=== PATIENT | female | born 1955 | race Caucasian/White ===

== ENCOUNTER → 2016-11-19 | Outpatient (CLI) | payer OTHER ==
[~2016-11-19] MED LIST: IOPAMIDOL (ISOVUE 370) 100 ML BTL IV ONE; LIDOCAINE 1% 300 MG/30 ML SDV ONE
== END ==
LOC: FIMAGING 12:36
PROVIDERS: ATTEND Podiatrist Primary Podiatric Medicine
PROC: 3E0U3KZ Introduction of Other Diagnostic Substance into Joints, Percutaneous Approach (ICD-10-PCS; principal; 2016-11-19)
DX: M79.671 Pain in right foot (principal); R93.6 Abnormal findings on diagnostic imaging of limbs
CPT/HCPCS: Q9967

== ENCOUNTER 2016-12-23 06:28 | Day surgery (SDC) | payer OTHER ==
[2016-12-23] MEDS ORDERED: LR 1,000 ML IV ONE (06:52)
--- NOTE | 2016-12-23 07:58 | PDANEPAE ---
ANE History of Present Illness right foot plantar plate repair ANE Past Medical History - Cardiovascular History Hx Hypertension: No Hx Arrhythmias: No Hx Chest Pain: No Hx Coronary Artery / Peripheral Vascular Disease: No Hx CHF / Valvular Disease: No Hx Palpitations: No - Pulmonary History Hx COPD: No Hx Asthma/Reactive Airway Disease: No Hx Recent Upper Respiratory Infection: No Hx Oxygen in Use at Home: No Hx Sleep Apnea: No Sleep Apnea Screening Result - Last Documented: Negative - Neurologic History Hx Cerebrovascular Accident: No Hx Seizures: No Hx Dementia: No - Endocrine History Hx Diabetes: No - Renal History Hx Renal Disorders: No - Liver History Hx Hepatic Disorders: No - Neurological & Psychiatric Hx Hx Neurological and Psychiatric Disorders: No - Cancer History Hx Cancer: No - Congenital Disorder History Hx Congenital Disorders: No - GI History Hx Gastrointestinal Disorders: No - Other Health History Other Health History: ALLERGIES SKIN RASHES - Chronic Pain History Chronic Pain: No - Surgical History Prior Surgeries: FEET BAILEE. ANKLE. ACL BAILEE ANE Review of Systems - Exercise capacity METS (RN): 4 METS ANE Patient History - Allergies Allergies/Adverse Reactions: celecoxib [From Celebrex] Allergy (Severe, Verified 12/23/16 07:01) oxaprozin [From Daypro] Allergy (Severe, Verified 12/23/16 07:01) povidone-iodine [From Betadine] Allergy (Mild, Verified 09/03/09 10:29) soap [From Betadine] Allergy (Mild, Verified 09/03/09 10:29) BANDAIDS Allergy (Mild, Uncoded 09/03/09 10:30) TAPE Allergy (Mild, Uncoded 09/03/09 10:29) - Home Medications Home medications: home medication list seen and reviewed Home Medications: Herbals/Supplements -Info Only 12/16/16 [Last Taken 12/16/16] Ibuprofen 12/16/16 [Last Taken 12/16/16] - NPO status NPO Since - Liquids (Date): 12/22/16 NPO Since - Liquids (Time): 18:00 NPO Since - Solids (Date): 12/22/16 NPO Since - Solids (Time): 18:00 - Anes Hx Anes Hx: slow to awaken from anesthesia - Smoking Hx Smoking Status: Never smoked - Family Anes Hx Family Anes Hx: none Family Hx Anesthesia Complications: NEG ANE Labs/Vital Signs - Vital Signs Blood Pressure: 107/72 Heart Rate: 74 Respiratory Rate: 14 O2 Sat (%): 92 Height: 165.1 cm Weight: 65.771 kg ANE Physical Exam - Airway Neck exam: FROM Mallampati Score: Class 1 Mouth exam: normal dental/mouth exam - Pulmonary Pulmonary: no respiratory distress - Cardiovascular Cardiovascular: regular rate and rhythym - ASA Status ASA Status: II ANE Anesthesia Plan Anesthesia Plan: GA w LMA, MAC
[2016-12-23] MEDS ORDERED: MIDAZOLAM 2 MG/2 ML VIAL IVP ONE (07:59)
[2016-12-23] MEDS ORDERED: MIDAZOLAM 2 MG/2 ML VIAL ONE (07:59)
[2016-12-23] MEDS ORDERED: fentaNYL 100 MCG/2 ML INJ ONE (08:04)
[2016-12-23] MEDS ORDERED: ONDANSETRON 4 MG/2 ML VIAL ONE (08:04)
[2016-12-23] MEDS ORDERED: PROPOFOL 200 MG/20 ML VIAL ONE ×2 (08:04)
[2016-12-23] MEDS ORDERED: LIDOCAINE 2% 5 ML SDV ONE ×2 (08:04→08:53)
[2016-12-23] MEDS ORDERED: BACITRACIN 50,000 UNITS/10 ML SYR IRR ONE (08:06)
[2016-12-23] MEDS ORDERED: BUPIVACAINE/EPI 0.25% 30 ML SDV ONE (08:06)
[2016-12-23] MEDS ORDERED: BUPIVACAINE 0.25% 30 ML SDV ONE (08:06)
--- NOTE | 2016-12-23 08:15 | PDHPUP ---
History & Physical Update H&P update statement: This history and physical update is based on an assessment of the patient which was completed after admission or registration (within 24 hours), but prior to the surgery/procedure.
[2016-12-23] MEDS ORDERED: ceFAZolin 2 GM/DEXTROSE 100 ML IV ONE (08:16)
[2016-12-23] MEDS ORDERED: THROMBIN (BOVINE) 5,000 UNIT VIAL TP ONE (08:20)
[2016-12-23] MEDS ORDERED: CALCIUM CHLORIDE 1 GM/10 ML INJ ONE (08:21)
[2016-12-23] MEDS ORDERED: ceFAZolin 1 GM VIAL ONE ×2 (08:21→08:22)
[2016-12-23] MEDS ORDERED: OXYCODONE/APAP 5/325 TAB PO PRN (09:21)
[2016-12-23] MEDS ORDERED: PROMETHAZINE HCL 25 MG/ML INJ IVP PRN (09:21)
[2016-12-23] MEDS ORDERED: ONDANSETRON 4 MG/2 ML VIAL IVP PRN (09:21)
[2016-12-23] MEDS ORDERED: NALOXONE HCL 0.4 MG/ML INJ IVP PRN (09:21)
[2016-12-23] MEDS ORDERED: HYDROmorphONE/DILAUDID 1 MG/ML SYR IVP PRN (09:21)
[2016-12-23] MEDS ORDERED: fentaNYL 100 MCG/2 ML INJ IVP PRN (09:21)
[2016-12-23] MEDS ORDERED: ACETAMINOPHEN 500 MG TAB PO PRN (09:21)
[2016-12-23] MEDS ORDERED: BACITRACIN ZINC 14.2 GM OINTTUBE TP ONE (09:37)
--- NOTE | 2016-12-23 09:48 | POSTOPPROG ---
Post Op Note Date of Operation: 12/23/16 Surgeon: Manjit Loaiza Account Resolution Expert: none Anesthesiologist: Sissy Anesthesia: IV Sedation (MAC) Pre-op Diagnosis: plantar plate teart right 2nd Post-op Diagnosis: same Indication: torn plantar plate right 2nd Procedure: 2nd metatarsal osteotomy, plantar plate repair, PRP injection Findings: no evidence of neuroma Inf/Abcess present in the surg proc area at time of surgery?: No Depth: Deep Incisional (Fascial) EBL: Minimal Total fluids administered: 20 cc 01/07 ration of .25% marcaine plain and with epi Complications: none Drains: Other (none)
--- NOTE | 2016-12-23 09:50 | POSTANESTH ---
Post Anesthetic Evaluation Cardiovascular Status: Normal, Stable Respiratory Status: Normal, Stable Level of Consciousness/Mental Status: Can Participate in Eval Pain Control: Adequate, Prn Tx Ordered Nausea/Vomiting Control: Adequate, Prn Tx Ordered Complications Possibly Related to Anesthesia: None Noted
[2016-12-23 10:23] VITALS: TEMP 97.9
[2016-12-23 10:53] VITALS: BP 104/68; PULSE 69; RESP 13; O2SAT 96
--- NOTE | 2016-12-23 16:03 | GOP ---
[f rep st] OPERATIVE REPORT DATE OF OPERATION: 12/23/2016 SURGEON: Manjit Loaiza DPM CLINICAL LABORATORY MANAGER: None. ANESTHESIA: Local with MAC. ANESTHESIOLOGIST: Helio Sheehan MD PREOPERATIVE DIAGNOSIS: 1. Plantar plate tear, right 2nd metatarsophalangeal joint. 2. Metatarsalgia, right 2nd metatarsophalangeal joint. POSTOPERATIVE DIAGNOSIS: 1. Plantar plate tear, right 2nd metatarsophalangeal joint. 2. Metatarsalgia, right 2nd metatarsophalangeal joint. PROCEDURE PERFORMED: 1. Second metatarsal osteotomy, right with internal fixation. 2. Plantar plate repair, right 2nd metatarsophalangeal joint. 3. Platelet-rich plasma injection, right 2nd metatarsophalangeal joint. FINDINGS: SPECIMENS: None. ESTIMATED BLOOD LOSS: Minimal. DESCRIPTION OF PROCEDURE: The patient presented to [facility], was cleared for the in tended procedure. Patient was taken to the operating room, placed on the table in supine position. IV sedation was started per the anesthesia department. Foot was anesthetized in an infiltrative ne rve block fashion. Foot was prepped, scrubbed, and draped in the usual sterile fashion. Following exsanguination by elevation and Esmarch bandage, pneumatic ankle tourniquet was inflated to 225 mmHg . At this time, attention was directed to dorsal aspect of the right 2nd metatarsophalangeal joint where a lazy-S incision was made starting proximal in the 2nd intermetatarsal space, curving mediall y over the metatarsophalangeal joint and extending out to the level of the proximal interphalangeal joint of the 2nd digit. This incision was carried deep utilizing sharp and blunt dissection, making sure that all neurovascular structures were identified and retracted. At this time, all superficia l bleeders were cauterized. The incision was carried down deep into the 2nd intermetatarsal space. At this time, visualization of the intermetatarsal nerve showed no obvious evidence of neuroma as w as indicated potentially by the MRI. It was decided at this point that the nerve would not be resec nura and removed. At this point, a linear capsulotomy was performed. Capsular tissues were dissecte d free medially and laterally to allow for adequate exposure to the head of the metatarsal and base of the proximal phalanx. The head of the metatarsal was freed up utilizing a McGlamry elevator at t his time. Upon completion of this, a sagittal saw was utilized to create an osteotomy running from dorsal distal to plantar proximal. Upon completion of this, the metatarsal head was transposed prox imally and pinned temporarily with K-wire fixation. Another K-wire was placed into the base of the proximal phalanx, and a pin distractor was placed over the site. Visualization of the plantar plate at this time showed tearing had occurred with some substantial fraying of the plantar plate. It wa s decided at this time that platelet-rich plasma would be utilized inside the site as well as repair ing the plantar plate. The plantar plate was completely freed up from the base of the proximal phal anx. The base of the proximal phalanx was roughed up with a bone rasp. The area was flushed with c opious amounts of sterile saline. Utilizing a Mini Scorpion, the medial and lateral aspects of the plantar plate were sutured appropriately. The drill holes through the base of the proximal phalanx were then created in an X fashion and the suture passed through and up to the dorsal aspect of the b ase of the proximal phalanx. Upon completion of this, the K-wire fixations were removed. The head was moved distally back into its appropriate alignment which was confirmed by C-arm fluoroscopy and held temporarily with a K-wire fixation. The area was then prepped for insertion of the Arthrex 2.0 snap-off screws. An 11 and 13 mm screw were introduced, and good compression was obtained. The te mporary K-wire fixation was removed. The redundant metatarsal at the dorsal aspect of the metatarsa l head was resected with the mini-rongeur. Upon completion of this, the area was flushed with copio us amounts of sterile saline. It was decided at this time that the area around the attachment of th e plantar plate would be the sprayed with the platelet-rich plasma-thrombin mixture. The capsule wa s then closed over the site with 2-0 and 3-0 Vicryl. More of the platelet-rich plasma combination w as placed over this site as well before subcutaneous closure was obtained with 5-0 Vicryl and skin c losure with 5-0 nylon. The area was dressed with bacitracin-impregnated Adaptic, 4 x 4's, beverly Stroud. The patient was then taken to recovery room, vital signs stable, vascular supply intact di gits 1 through 5 bilaterally, after x-ray evaluation had shown excellent alignment to the metatarsop halangeal joint. Stress testing of the repaired plantar plate did not show any dorsal dislocatabili ty at this time either. HEMOSTASIS: PAT at 225 mmHg by 55 minutes. MATERIALS: Arthrex 2.0 snap-off screws by 11 and 13 mm. INJECTABLES: 20 cc 9:1 ratio 0.25% Marcaine plain, 0.25% Marcaine with epi preoperatively. COMPLICATIONS: None. /[id number]/MODL
== END 2016-12-23 11:15 | disposition home or self-care (01) ==
LOC: FSGY 06:28
PROVIDERS: ATTEND Podiatrist Primary Podiatric Medicine
PROC: 3E023GC Introduction of Other Therapeutic Substance into Muscle, Percutaneous Approach (ICD-10-PCS; principal; 2016-12-23 08:15)
PROC: 0QQN0ZZ Repair Right Metatarsal, Open Approach (ICD-10-PCS; principal; 2016-12-23 08:15)
PROC: 0LQV0ZZ Repair Right Foot Tendon, Open Approach (ICD-10-PCS; principal; 2016-12-23 08:15)
DX: M66.371 Spontaneous rupture of flexor tendons, right ankle and foot (principal); M77.41 Metatarsalgia, right foot
CPT/HCPCS: 0232T; 28200; 28308; C1769; C1713; J0690; J2250; J2405; J2704; J3010